=== PATIENT | female | born 1955 | race Caucasian/White ===

== ENCOUNTER 2016-10-10 08:04 | Day surgery (SDC) | payer MEDICARE, OTHER ==
[2016-10-10] VITALS (7 sets, daily range): BP systolic 110–187; BP diastolic 64–91; PULSE 58–74; RESP 15–22; Ht 154.9 cm; Wt 108.3 kg
[~2016-10-10] VITALS: Ht 154.9 cm; Wt 108.3 kg
[~2016-10-10 08:04] MED LIST: SOD CHLORIDE 0.9% 1,000 ML IV SCH
[2016-10-10] MEDS ORDERED: IODIXANOL LOCM 100 ML BTL ONE (09:13)
[2016-10-10] MEDS ORDERED: LIDOCAINE 1% (MDV) 20 ML INJ ONE (09:13)
[2016-10-10 09:16] LABS: BASOPHIL # 0.1 10^3/ul (0.0-0.1); EOSINOPHILS # 0.3 10^3/ul (0.0-0.5); EOSINOPHILS % 5.5 % (0.0-7.0); HEMATOCRIT 36.3 % (37.0-47.0); HEMOGLOBIN 11.4 g/dl (12.0-16.0); LYMPHOCYTES # 1.3 10^3/ul (0.8-2.9); LYMPHOCYTES % 25.3 % (15.0-51.0); MEAN CORPUSCULAR HEMOGLOBIN 25.9 pg (29.0-33.0); MEAN CORPUSCULAR HGB CONC 31.4 g/dl (32.0-37.0); MEAN CORPUSCULAR VOLUME 82.3 fl (82.0-101.0); MEAN PLATELET VOLUME 10.9 fl (7.4-10.4); MONOCYTE # 0.5 10^3/ul (0.3-0.9); MONOCYTES % 8.8 % (0.0-11.0); PLATELET COUNT 213 10^3/UL (140-415); RED BLOOD COUNT 4.41 10^6/ul (4.20-5.40); RED CELL DISTRIBUTION WIDTH 15.1 % (11.5-14.5); WHITE BLOOD COUNT 5.1 10^3/ul (4.8-10.8)
[2016-10-10 09:31] LABS: INR 0.97; PROTIME 12.9 Sec (12.2-14.2)
[2016-10-10 09:32] LABS: PARTIAL THROMBOPLASTIN TIME 27.2 Sec (25.0-35.0)
[2016-10-10 09:35] LABS: ALANINE AMINOTRANSFERASE 43 IU/L (13-69); ALBUMIN 4.4 g/dl (3.3-4.9); ALBUMIN/GLOBULIN RATIO 1.22; ALKALINE PHOSPHATASE 177 IU/L (42-121); ANION GAP 22 (8-16); ASPARTATE AMINO TRANSFERASE 31 IU/L (15-46); BILIRUBIN,INDIRECT 0.5 mg/dl (0-1.1); BILIRUBIN,TOTAL 0.5 mg/dl (0.2-1.3); CARBON DIOXIDE 26 mmol/L (21-31); CHLORIDE 102 mmol/L (97-110); CHOL/HDL RATIO 3.7 RATIO; CHOLESTEROL 152 mg/dl (100-200); CREATINE KINASE 355 IU/L (23-200); GLUCOSE 141 mg/dl (70-220); HDL CHOLESTEROL 41 mg/dl (35-98); TRIGLYCERIDES 115 mg/dl (0-149)
[2016-10-10 09:36] LABS: BLOOD UREA NITROGEN 20 mg/dl (7-20); CALCIUM 9.2 mg/dl (8.4-10.2); CREATININE 0.92 mg/dl (0.44-1.00); POTASSIUM 4.5 mmol/L (3.5-5.1); SODIUM 145 mmol/L (135-144)
[2016-10-10] MEDS ORDERED: ASPI-664 PO (09:39)
[2016-10-10] MEDS ORDERED: ATOR80TA75 PO (09:39)
[2016-10-10] MEDS ORDERED: CLOP75TA27 PO (09:40)
[2016-10-10] MEDS ORDERED: DICL75TA2 PO (09:41)
[2016-10-10] MEDS ORDERED: LOSA100T7 PO (09:41)
[2016-10-10] MEDS ORDERED: METO100T13 PO (09:41)
[2016-10-10] MEDS ORDERED: OMEP20CA16 PO (09:43)
[2016-10-10] MEDS ORDERED: RANO500T2 PO (09:44)
[2016-10-10 09:46] LABS: CK-MB 4.44 ng/ml (0.0-2.4)
[2016-10-10 09:49] LABS: TROPONIN-I < 0.012 ng/ml (0.00-0.12)
[2016-10-10] MEDS ORDERED: NITROGLYCERIN (IC) 100 MCG/ML INJ ONE (10:10)
[2016-10-10] MEDS ORDERED: VERAPAMIL 5 MG INJ ONE (10:10)
[2016-10-10] MEDS ORDERED: FENTAnyl 50 MCG/ML VIAL ONE (10:11)
[2016-10-10] MEDS ORDERED: MIDAZOLAM 1 MG/ML 2 ML INJ ONE (10:11)
[2016-10-10] MEDS ORDERED: SOD CHLORIDE 0.9% 1,000 ML IV SCH (12:11)
--- NOTE | 2016-10-10 12:21 | OPR ---
Date/Time of Note Date/Time of Note DATE: 10/10/16 TIME: 12:14 Operative Report Procedure Date: Oct 10, 2016 Operative\Procedure Findings Procedure performed: 1. Left heart catheterization, selective right and left coronary angiogram 2. right femoral angiogram and closure of the right femoral artery using a perclose device 3. moderate sedation for more than 45 minutes. Cutter Grind Tool Technician: Angie Harper MD Indication:: ANGINA AND ABNORMAL STRESS TEST. Findin. Left main coronary artery: Is normal. 2. Left anterior descending artery: Its a moderate size vessel and goes around the apex. It has 50% proximal followed by 70% stenosis proximally at the site of moderate size Diagonal, and 95% stenosis of the mid LAD. distal LAD has 60% stenosis. diagonal is moderate size vessel with 50% stenosis. There is L ---> R collaterals to PDA. 3. Left circumflex artery: Is nondominant. It has mild % stenosis at large OM. Distal left circumflex artery is very small and diffusely diseased and probably up to 99% stenosis.. 4. Right coronary artery: Is a moderate dominant vessel. It has 40% proximal stenosis. It bifurcates to PDA and posterolateral artery both of which are small. PDAs 100% occlusion proximally. Good size left to right collaterals noted. Posterolateral artery is a small with about 95-99% stenosis proximally. 5. LV pressure: 158/20; no gradient across the aortic valve. Written informed consent with obtained after risks benefits and alternatives discussed with the patient in detail. risks including but not limited to risk of infection vascular complications, bleeding complications, ME stroke arrhythmia renal failure at even were discussed with the patient in detail. Patient was brought into the cardiac medical laboratory assistant and placed in supine position. left radial artery was anesthetized after an Deangelo test was checked and was normal. With use of ultrasound a very small radial artery was identified. Micropuncture needle was advanced into the arterial flow was noted. A small hydrophilic wire was advanced however it could not cross. It appeared that the radial artery was very small and probably also spasm down as well. It was decided to go on the right femoral approach. Right and left groin area was prepped and draped in regular sterile fashion and then he was in anesthetized using 1% lidocaine. Right femoral artery was cannulated and using modified seldinger technique a 6 Romansh sheath was placed in the right femoral artery. Right femoral angiogram was performed. JL4 catheter was advanced and engaged into the left main coronary artery and angiographic view was obtained. The JR4 catheter was advanced and engaged right coronary artery angiographic view was obtained. JR4 was advanced to engage the left ventricle hemodynamics as recorded by pullback aortic pressure was measured Patient tolerated procedure well with no complication. Patient is to be transferred to recovery room in stable condition. contrast used: 55 cc Conclusions: Multivessel coronary artery disease Recommendations: CT surgery evaluation for coronary artery bypass graft. Discussed the case with Dr. Demarco who would evaluate the patient today. ANGIE HARPER MD Oct 10, 2016 12:21
[2016-10-10] MEDS ORDERED: ACETAMINOPHEN 325 MG TAB PO PRN (12:30)
[2016-10-10] MEDS ORDERED: morphine 2 MG INJ IV PRN (12:30)
[2016-10-10] MEDS ORDERED: HOLD all METFORMIN and METFORMIN CONTAINING medications for 48 hours post procedure. Chec XX SCH (12:30)
--- NOTE | 2016-10-10 14:06 | CONS ---
Date/Time of Note Date/Time of Note DATE: 10/10/16 TIME: 14:01 Assessment/Plan Assessment/Plan Additional Assessment/Plan 61 year old female with severe 3 vessel CAD who will need a cabg. I explained the benefits, risks, and alternatives of surgery to the patient and her daughter. The risks are but not limited to bleeding, infection, stroke, AR, renal and respiratory failure and . She understands and consents. I will schedule her as an outpatient. Thank you for the referral Consultation Date/Type/Reason Admit Date/Time Date of Consultation: Oct 10, 2016 Reason for Consultation EVALUATE FOR CABG Referring Provider: ANGIE SCRUGGS MD Hx of Present Illness 61 year old obese female complaining of chest pain and SOB. Positive stress test. Cath today shows severe proximal LAD and diagonal disease and a totally occluded distal circumflex and occluded PDA filling from left to right. We are asked to see her regarding CABG. Constitutional: No chills, No diaphoresis, No disoriented, No febrile, No improved, No no complaints, No other, No poor po, No requiring IVF, No requiring O2 Eyes: No discharge, No no complaints, No other, No pain, No redness, No visual change ENT: No bleeding, No congestion, No discharge, No dysphagia, No no complaints, No other, No pain, No sore throat Respiratory: shortness of breath Cardiovascular: chest pain, orthopenea Gastrointestinal: No blood, No constipation, No decreased appetite, No diarrhea , No flatus, No nausea, No no complaints, No other, No pain, No passing stool, No vomiting Genitourinary: No bleeding, No discharge, No dysuria, No flank pain, No hematuria, No no complaints, No other Musculoskeletal: No back pain, No bone/joint pain, No neck pain, No no complaints, No other, No restricted range of motion, No swelling Skin: No bruising, No erythema, No laceration, No no complaints, No other, No pruritis, No rash, No skin lesions Neurologic: No confusion, No dizziness, No focal-weakness, No headache, No no complaints, No other, No seizure, No syncope Endocrine: No dry skin, No no complaints, No other, No polydypsia, No polyuria , No temp intolerance Lymphatic: No adenopathy, No lymphadema, No no complaints, No other, No tender nodes Psychological: No anxiety, No confusion, No depression, No nl mood/affect, No no complaints, No other, No suicidal Immunologic: No immunodeficiency, No no complaints, No other, No pruritis, No rhinitis, No urticaria Past Medical History Medical History: coronary artery disease, hypertension Past Surgical History Past Surgical Hx: no surgical history Family History Significant Family History: no pertinent family hx Social History Alcohol Use: none Smoking Status: Never smoker Drug Use: none Other Social History and has two children Exam/Review of Systems Vital Signs Vitals Vital Signs Date Time Temp Pulse Resp B/P Pulse Ox O2 Delivery O2 Flow Rate FiO2 10/10/16 13:03 59 18 111/65 95 Room Air 10/10/16 12:23 98.0 Exam Constitutional: No alert, No distress, No frail, No non-verbal, No obese, No oriented, No other, No well developed Psych: No anxiety, No confusion, No depression, No nl mood/affect, No no complaints, No other, No suicidal Head: No atraumatic, No hematomas, No lacerations, No normocephalic, No other Eyes: No EOMI, No PERRL, No fundi, disc, No icteric, No nl conjunctiva, No nl lids, No nl sclera, No other ENMT: No intubated, No mucosa pink and moist, No nl external ears & nose, No nl lips & teeth, No nl nasal mucosa & septum, No other, No tympanic membranes Neck: No bruits, No jvd, No masses, No non-tender, No nuchal rigidity, No other , No supple, No thyromegaly Respiratory: No clear to auscultation, No congested cough, No crackles/rales, No diminished breath sounds, No intercostal retraction, No labored breathing, No normal air movement, No other, No respirations, No tactile fremitus, No wheezing Cardiovascular: No S3, No S4, No bruits, No diastolic murmur, No edema, No gallop, No irregular rhythm, No jugular venous distention (JVD), No murmurs/ extra sounds, No nl pulses, No other, No regular rate and rhythm, No rub, No systolic murmur Gastrointestinal: No ascites, No bowel sounds, No distended, No firm, No hepatomegaly, No mass, No nl liver, spleen, No non-tender, No other, No rebound or guarding, No soft, No splenomegaly, No surgical scars, No tender Genitourinary - Female: No CMT, No CVA tenderness, No nl adnexae, No nl external genitalia, No other, No uterus Musculoskeletal: No joint tenderness, No muscle tone, No muscle weakness, No nl extremities to inspection, No nl gait and stance, No other, No range of motion, No spine non-tender, No swelling Extremities: No calf tenderness, No clubbing, No cyanosis, No edema, No normal pulses, No other, No palpable cord, No pitting pedal edema, No tenderness Neurological: No GRANITE FABRICATOR II-XII intact, No DTR's symmetric, No confused, No focal weakness, No lethargic, No nl mental status, No nl speech, No nl strength, No numbness, No other, No reflexes, No unresponsive Skin: No diaphoresis, No ecchymosis, No laceration, No nl turgor, No other, No puncture, No rash or lesions Lymph: No enlarged, No nl lymph nodes, No nontender, No other Results Result Diagram: 10/10/16 0910 10/10/16 0910 Results 24 hrs Laboratory Tests Test 10/10/16 09:10 White Blood Count 5.1 Red Blood Count 4.41 Hemoglobin 11.4 L Hematocrit 36.3 L Mean Corpuscular Volume 82.3 Mean Corpuscular Hemoglobin 25.9 L Mean Corpuscular Hemoglobin Concent 31.4 L Red Cell Distribution Width 15.1 H Platelet Count 213 Mean Platelet Volume 10.9 H Neutrophils % 59.0 Lymphocytes % 25.3 Monocytes % 8.8 Eosinophils % 5.5 Basophils % 1.0 Nucleated Red Blood Cells % 0.0 Neutrophils # 3.0 Lymphocytes # 1.3 Monocytes # 0.5 Eosinophils # 0.3 Basophils # 0.1 Nucleated Red Blood Cells # 0.0 Prothrombin Time 12.9 Prothrombin Time Ratio 1.0 INR International Normalized Ratio 0.97 Activated Partial Thromboplast Time 27.2 Sodium Level 145 H Potassium Level 4.5 Chloride Level 102 Carbon Dioxide Level 26 Anion Gap 22 H Blood Urea Nitrogen 20 Creatinine 0.92 Glucose Level 141 Calcium Level 9.2 Total Bilirubin 0.5 Direct Bilirubin 0.00 Indirect Bilirubin 0.5 Aspartate Amino Transf (AST/SGOT) 31 Alanine Aminotransferase (ALT/SGPT) 43 Alkaline Phosphatase 177 H Creatine Kinase 355 H Creatine Kinase Index 1.3 Creatinine Kinase MB (Mass) 4.44 H Troponin I < 0.012 Total Protein 8.0 Albumin 4.4 Globulin 3.60 H Albumin/Globulin Ratio 1.22 Triglycerides Level 115 Cholesterol Level 152 LDL Cholesterol, Calculated 88 HDL Cholesterol 41 Cholesterol/HDL Ratio 3.7 Medications Medications Current Medications Miscellaneous Information (* Miscellaneous Pharmacy Order) HOLD all METFORMIN ... ONCE XX ; Start 10/10/16 at 12:30; Stop 10/12/16 at 12:29 Acetaminophen (Tylenol Tab) 650 mg Q4H PRN PO NON-CARDIAC PAIN LEVEL (1-3); Start 10/10/16 at 12:30 Morphine Sulfate 2 mg 2 mg Q2H PRN IV FOR NON CARDIAC PAIN (4-10) Last administered on 10/10/16 12:46; Admin Dose 2 MG; Start 10/10/16 at 12:30 Sodium Chloride (NS) 1,000 ml @ 75 mls/hr [id number] IV Last administered on 12:37; Admin Dose 75 MLS/HR; Start 10/10/16 at 12:11; Stop 10/10/16 at 17:10 SUSAN CODY MD Oct 10, 2016 14:06
--- NOTE | 2016-10-10 14:16 | RADRPT ---
PROCEDURE: US Carotids. CLINICAL INDICATION: bruit , preop for CABG TECHNIQUE: Multiple sonographic of the carotid bifurcation region and vertebral arteries were obta ined utilizing tobar scale, duplex and color-flow imaging. The images were reviewed on a PACS worksta tion. COMPARISON: No prior studies are available for comparison. FINDINGS: Evaluation of the right carotid bifurcation region reveals no significant calcific atherosclerotic d isease. Evaluation of the left carotid bifurcation region reveals no significant calcific atherosclerotic di sease. There is antegrade flow within the vertebral arteries bilaterally. RIGHT CAROTID MEASUREMENTS: Common Carotid Lslcir88.4 (cm/sec) Internal Carotid Artery - asjbdhly31.9 (cm/sec) Internal Carotid Artery - mid53.8 (cm/sec) Internal Carotid Artery - klwixs09.9 (cm/sec) Internal Carotid/Common Carotid0.81 LEFT CAROTID MEASUREMENTS: Common Carotid Mscoxv52.1 (cm/sec) Internal Carotid Artery - owyznihv83.5 (cm/sec) Internal Carotid Artery - mid50 (cm/sec) Internal Carotid Artery - earwhv42.3 (cm/sec) Internal Carotid/Common Carotid0.91 RPTAT: AA IMPRESSION: No evidence for hemodynamically significant stenosis in the bilateral internal carotid arteries - va lidated velocity measurements with angiographic measurements, velocity criteria are extrapolated fro m diameter data as defined by the Society of Radiologists in Ultrasound Consensus Conference Radiolo gy 2003; 229;340-346. This study does indirectly reference the measurement of the distal ICA diamet er as the denominator for stenosis measurement. Normal antegrade flow in the vertebral arteries bilaterally. .Jose Kevin MD, MD Date Time Electronically viewed and signed by .Jose Kevin MD, MD on 10/10/2016 14:15 .S/
== END 2016-10-10 16:25 | disposition home or self-care (01) ==
LOC: SDS 08:04
PROVIDERS: ATTEND Internal Medicine Interventional Cardiology
DX: I25.119 Atherosclerotic heart disease of native coronary artery with unspecified angina pectoris (principal); R94.39 Abnormal result of other cardiovascular function study; I10 Essential (primary) hypertension
CPT/HCPCS: 80053; 80061; 82550; 82553; 84484; 85025; 85610; 85730; 93458; 93880; C1760; C1769; C1887; C1894; J1644; J2250; J2270; J3010; Q9967

== ENCOUNTER → 2016-12-08 | Outpatient (CLI) | payer MEDICARE, OTHER ==
[~2016-12-08] MED LIST changes: +ASPI-664 PO; +ATOR80TA75 PO; +CLOP75TA27 PO; +DICL75TA2 PO; +LOSA100T7 PO; +METO-336 PO; +OMEP20CA16 PO; +RANO500T2 PO; -SOD CHLORIDE 0.9% 1,000 ML IV SCH
== END | disposition home or self-care (01) ==
LOC: EDSTATUS 10:00 → CRE 10:24
PROVIDERS: ATTEND Internal Medicine Pulmonary Disease
DX: Z95.1 Presence of aortocoronary bypass graft (principal)
CPT/HCPCS: 93797